=== PATIENT | female | born 1935 | race Caucasian/White ===

== ENCOUNTER 2017-05-10 03:25 | Inpatient (IN) ==
[2017-05-10] MEDS ORDERED: KETOROLAC 30 MG/1 ML VIAL IM STA (04:02)
[2017-05-10] MEDS ORDERED: KETOROLAC 30 MG/1 ML VIAL ONE (04:03)
[2017-05-10 06:08] LABS: Basophils # 0.1 10*3/uL (0.0-0.2); Basophils % 0.8 % (0.0-0.8); Eosinophils # 0.3 10*3/uL (0.0-0.87); Eosinophils % 2.2 % (0.00-10.9); Hematocrit 36.2 VOL% (35.7-47.0); Hemoglobin 12.5 GM/DL (12.0-16.0); Immature Granulocytes % 0.4 %; Immature Granulocytes Absolute 0.05 #; Lymphocytes # 3.6 10*3/uL (1.4-4.0); Lymphocytes % 29.9 % (21.3-54.2); Mean Corpuscular HGB Conc 34.5 GM/DL (32-36); Mean Corpuscular Hemoglobin 30 PG (27-34); Mean Platelet Volume 9.3 FL (9.6-12.0); Monocytes # 1.1 10*3/uL (0.11-0.8); NRBC # 0.02 10*3/uL; Neutrophils # 6.9 10*3/uL (1.4-7.4); Neutrophils % 57.7 % (38.7-73.9); Platelet Count 275 T/CUMM (130-400); Red Blood Count 4.16 MC/CUMM (3.8-5.5); Red Cell Distribution Width 13.8 % (9.3-17.3); White Blood Count 11.9 T/CUMM (4-12)
[2017-05-10 06:23] LABS: PT Patient Result 10.5 SECS; Partial Thromboplastin Time 27.2 SECS (0-40)
[2017-05-10 06:29] LABS: Albumin 3.2 G/DL (3.4-5.0); Bilirubin,Total 0.9 MG/DL (0.2-1.0); Calcium 8.9 MG/DL (8.5-10.1); Osmolality,Calculated 268.1 MOS/KG (273-304); Potassium 3.4 MMOL/L (3.5-5.1); Total Protein 5.7 G/DL (6.4-8.3)
[2017-05-10 06:31] LABS: Apearance,Urine CLEAR (Clear); Bacteria,Urine Occasional /HPF (Few); Bilirubin,Urine Negative (Negative); Blood, Urine Large mg/dL (Negative); Glucose,Urine (UA) Negative (Negative); Hyaline Casts,Urine 1 /LPF (0-3); Ketones,Urine Negative (Negative); Mucus,Urine Occasional /LPF (Occasional); Nitrite,Urine Negative (Negative); Protein,Urine Negative; RBC,Urine 4 /HPF (0-4); Squamous Epithelial Cell,Urine Occasional /HPF (0-10); Urine Color Yellow (Yellow); Urine Specific Gravity 1.005 (1.001-1.035); Urine Urobilinogen < 2.0 EU/DL (0.2-1.0); WBC,Urine 1 /HPF (0-6)
[2017-05-10] MEDS ORDERED: ONDANSETRON 4 MG/2 ML VIAL IV PRN (06:42)
[2017-05-10] MEDS ORDERED: MORPHINE 2 MG/1 ML SYRINGE IV PRN (06:42)
[2017-05-10] MEDS ORDERED: DIPHENOXYLATE/ATROPINE 2.5-0.025 MG TABLET PO PRN (09:40)
[2017-05-10] MEDS ORDERED: INFLUENZA VIRUS VACCINE 0.5 ML SYRINGE IM ONE (09:42)
[2017-05-10] MEDS ORDERED: oxyCODONE IR 5 MG TABLET PO PRN (12:41)
[2017-05-10] MEDS ORDERED: MAGNESIUM HYDROXIDE SUSP 30 ML UDCUP PO PRN (12:41)
[2017-05-10] MEDS ORDERED: BACITRACIN OINT 0.9 GM PACK TOP ONE (13:24)
[2017-05-10] MEDS ORDERED: SODIUM CHLORIDE 0.9% 250 ML IV ONE (13:42)
[2017-05-10] MEDS ORDERED: PROPOFOL 200 MG/20 ML VIAL IV ONE (13:42)
[2017-05-10] MEDS ORDERED: ACETAMINOPHEN 1,000 MG/100 ML VIAL IV ONE (13:42)
[2017-05-10] MEDS ORDERED: ONDANSETRON 4 MG/2 ML VIAL ONE (13:42)
[2017-05-10] MEDS ORDERED: KETAMINE 500 MG/10 ML VIAL ONE (13:42)
[2017-05-10] MEDS: LACTATED RINGERS 1,000 ML IV SCH (15:15)
[2017-05-10] MEDS: ACETAMINOPHEN 500 MG TABLET PO SCH ×3 (17:29→23:05)
[2017-05-10] MEDS: KETOROLAC 15 MG/1 ML VIAL IV SCH ×2 (17:30→19:43)
[2017-05-10] MEDS: ZALEPLON 5 MG CAPSULE PO SCH (20:52)
[2017-05-10] MEDS: DOCUSATE SODIUM 100 MG CAPSULE PO SCH (20:52)
[2017-05-10] MEDS: clonazePAM 0.5 MG TABLET PO SCH (20:53)
[2017-05-10] MEDS: PREGABALIN 75 MG CAPSULE PO SCH (20:53)
[2017-05-11] MEDS: KETOROLAC 15 MG/1 ML VIAL IV SCH ×2 (01:29→06:50)
[2017-05-11] MEDS: ACETAMINOPHEN 500 MG TABLET PO SCH ×2 (04:24→11:32)
[2017-05-11] MEDS: LACTATED RINGERS 1,000 ML IV SCH ×3 (04:24→19:57)
[2017-05-11 06:12] LABS: Basophils # 0.1 10*3/uL (0.0-0.2); Basophils % 0.7 % (0.0-0.8); Eosinophils # 0.2 10*3/uL (0.0-0.87); Eosinophils % 3.2 % (0.00-10.9); Hematocrit 33.7 VOL% (35.7-47.0); Hemoglobin 11.3 GM/DL (12.0-16.0); Immature Granulocytes % 0.1 %; Immature Granulocytes Absolute 0.01 #; Lymphocytes # 1.7 10*3/uL (1.4-4.0); Lymphocytes % 22.9 % (21.3-54.2); Mean Corpuscular HGB Conc 33.5 GM/DL (32-36); Mean Corpuscular Hemoglobin 30 PG (27-34); Mean Corpuscular Volume 88.2 FL (87-102); Mean Platelet Volume 9.3 FL (9.6-12.0); Monocytes # 0.7 10*3/uL (0.11-0.8); Monocytes % 9.1 % (1.7-12.7); Neutrophils # 4.8 10*3/uL (1.4-7.4); Platelet Count 242 T/CUMM (130-400); Red Blood Count 3.82 MC/CUMM (3.8-5.5); Red Cell Distribution Width 13.9 % (9.3-17.3); White Blood Count 7.6 T/CUMM (4-12)
[2017-05-11 06:37] LABS: Calcium 8.3 MG/DL (8.5-10.1); Osmolality,Calculated 284.8 MOS/KG (273-304)
[2017-05-11 06:40] LABS: Albumin 2.4 G/DL (3.4-5.0); Bilirubin,Total 0.7 MG/DL (0.2-1.0); Calcium 8.4 MG/DL (8.5-10.1); Osmolality,Calculated 284.8 MOS/KG (273-304); Total Protein 4.6 G/DL (6.4-8.3)
[2017-05-11] MEDS: FONDAPARINUX 2.5 MG/0.5 ML SYRINGE SUBCUT SCH (06:49)
[2017-05-11] MEDS: LEVOTHYROXINE 75 MCG TABLET PO SCH (06:49)
[2017-05-11] MEDS: CHOLECALCIFEROL 1,000 UNIT TABLET PO SCH (09:05)
[2017-05-11] MEDS: DOCUSATE SODIUM 100 MG CAPSULE PO SCH ×2 (09:06→20:10)
[2017-05-11] MEDS: CYPROHEPTADINE 4 MG TABLET PO SCH (09:06)
[2017-05-11] MEDS: clonazePAM 0.5 MG TABLET PO SCH ×2 (09:06→20:10)
[2017-05-11] MEDS: ASPIRIN EC 81 MG TABLET PO SCH (09:06)
[2017-05-11] MEDS: FAMOTIDINE 20 MG TABLET PO SCH (09:06)
[2017-05-11] MEDS: OMEGA 3 ACID ETHYL ESTERS 1 GM CAPSULE PO SCH (09:06)
[2017-05-11] MEDS: MULTIVITAMIN (CENTRUM) TABLET PO SCH (09:06)
[2017-05-11] MEDS: ZALEPLON 5 MG CAPSULE PO SCH (20:10)
[2017-05-11] MEDS: PREGABALIN 75 MG CAPSULE PO SCH (20:10)
[2017-05-11] MEDS: oxyCODONE IR 5 MG TABLET PO PRN (21:09)
[2017-05-12] MEDS: oxyCODONE IR 5 MG TABLET PO PRN ×2 (02:53→21:55)
[2017-05-12] MEDS: LACTATED RINGERS 1,000 ML IV SCH ×2 (05:02→17:42)
[2017-05-12 05:12] LABS: Basophils # 0.1 10*3/uL (0.0-0.2); Basophils % 0.7 % (0.0-0.8); Eosinophils # 0.3 10*3/uL (0.0-0.87); Eosinophils % 2.5 % (0.00-10.9); Hematocrit 32.4 VOL% (35.7-47.0); Hemoglobin 11.2 GM/DL (12.0-16.0); Immature Granulocytes % 0.4 %; Immature Granulocytes Absolute 0.04 #; Lymphocytes # 2.3 10*3/uL (1.4-4.0); Lymphocytes % 22.7 % (21.3-54.2); Mean Corpuscular HGB Conc 34.6 GM/DL (32-36); Mean Corpuscular Hemoglobin 30 PG (27-34); Mean Corpuscular Volume 87.1 FL (87-102); Monocytes # 0.7 10*3/uL (0.11-0.8); Monocytes % 7.1 % (1.7-12.7); Neutrophils # 6.6 10*3/uL (1.4-7.4); Neutrophils % 66.6 % (38.7-73.9); Platelet Count 252 T/CUMM (130-400); Red Blood Count 3.72 MC/CUMM (3.8-5.5); Red Cell Distribution Width 13.9 % (9.3-17.3)
[2017-05-12] MEDS: FONDAPARINUX 2.5 MG/0.5 ML SYRINGE SUBCUT SCH (05:54)
[2017-05-12] MEDS: LEVOTHYROXINE 75 MCG TABLET PO SCH (06:00)
[2017-05-12] MEDS: CYPROHEPTADINE 4 MG TABLET PO SCH (08:45)
[2017-05-12] MEDS: DOCUSATE SODIUM 100 MG CAPSULE PO SCH ×2 (08:45→20:05)
[2017-05-12] MEDS: OMEGA 3 ACID ETHYL ESTERS 1 GM CAPSULE PO SCH (08:45)
[2017-05-12] MEDS: ASPIRIN EC 81 MG TABLET PO SCH (08:45)
[2017-05-12] MEDS: clonazePAM 0.5 MG TABLET PO SCH ×2 (08:46→20:05)
[2017-05-12] MEDS: CHOLECALCIFEROL 1,000 UNIT TABLET PO SCH (08:46)
[2017-05-12] MEDS: MULTIVITAMIN (CENTRUM) TABLET PO SCH (08:46)
[2017-05-12] MEDS: FAMOTIDINE 20 MG TABLET PO SCH (08:46)
[2017-05-12] MEDS: ZALEPLON 5 MG CAPSULE PO SCH (20:04)
[2017-05-12] MEDS: PREGABALIN 75 MG CAPSULE PO SCH (20:05)
[2017-05-13] MEDS: oxyCODONE IR 5 MG TABLET PO PRN (01:00)
[2017-05-13] MEDS: LACTATED RINGERS 1,000 ML IV SCH (01:23)
[2017-05-13] MEDS: LEVOTHYROXINE 75 MCG TABLET PO SCH (06:10)
[2017-05-13] MEDS: FONDAPARINUX 2.5 MG/0.5 ML SYRINGE SUBCUT SCH (06:10)
[2017-05-13] MEDS: MULTIVITAMIN (CENTRUM) TABLET PO SCH (09:07)
[2017-05-13] MEDS: DOCUSATE SODIUM 100 MG CAPSULE PO SCH (09:07)
[2017-05-13] MEDS: ASPIRIN EC 81 MG TABLET PO SCH (09:07)
[2017-05-13] MEDS: OMEGA 3 ACID ETHYL ESTERS 1 GM CAPSULE PO SCH (09:08)
[2017-05-13] MEDS: FAMOTIDINE 20 MG TABLET PO SCH (09:08)
[2017-05-13] MEDS: clonazePAM 0.5 MG TABLET PO SCH (09:08)
[2017-05-13] MEDS: CYPROHEPTADINE 4 MG TABLET PO SCH (09:09)
[2017-05-13] MEDS: CHOLECALCIFEROL 1,000 UNIT TABLET PO SCH (09:09)
[2017-05-13 11:09] VITALS: BP 116/57
== END 2017-05-13 12:10 | disposition swing bed (61) | DRG 482 ==
LOC: EDUNIT# → EDBD → N.ED 03:25 → SUATTDRO 06:41 → N.EDINP 06:41 → N.3E 08:29
PROVIDERS: ADMIT Internal Medicine Cardiovascular Disease; ATTEND Internal Medicine

== ENCOUNTER 2019-01-15 10:08 | Observation (INO) ==
[2019-01-15] MEDS ORDERED: ONDANSETRON 4 MG/2 ML VIAL IV PRN (15:07)
[2019-01-15] MEDS ORDERED: ACETAMINOPHEN 325 MG TABLET PO PRN (15:10)
[2019-01-15] MEDS: SODIUM CHLORIDE 0.9% 1,000 ML IV SCH (15:54)
[2019-01-15 16:13] LABS: Risk Ratio 5.64; Thyroid Stimulating Hormone 0.573 uIU/ml (0.358-3.74)
[2019-01-15] MEDS: cefTRIAXone 1,000 MG in SYRINGE 1 EACH IV SCH (16:39)
[2019-01-16] MEDS: SODIUM CHLORIDE 0.9% 1,000 ML IV SCH ×2 (04:05→15:30)
[2019-01-16 05:11] LABS: Basophils # 0.1 10*3/uL (0.0-0.2); Basophils % 1.1 % (0.0-0.8); Eosinophils # 0.4 10*3/uL (0.0-0.87); Eosinophils % 5.9 % (0.00-10.9); Hematocrit 37.4 VOL% (35.7-47.0); Hemoglobin 11.8 GM/DL (12.0-16.0); Immature Granulocytes % 0.3 %; Immature Granulocytes Absolute 0.02 #; Lymphocytes # 3.1 10*3/uL (1.4-4.0); Lymphocytes % 41.2 % (21.3-54.2); Mean Corpuscular HGB Conc 31.6 GM/DL (32-36); Mean Corpuscular Volume 87.8 FL (87-102); Mean Platelet Volume 10.5 FL (9.6-12.0); Monocytes % 9.1 % (1.7-12.7); Neutrophils % 42.4 % (38.7-73.9); Platelet Count 290 T/CUMM (130-400); Red Blood Count 4.26 MC/CUMM (3.8-5.5); White Blood Count 7.5 T/CUMM (4-12)
[2019-01-16 05:18] LABS: Albumin 2.9 G/DL (3.4-5.0); Bilirubin,Total 0.7 MG/DL (0.2-1.0); Osmolality,Calculated 275.7 MOS/KG (273-304); Total Protein 5.5 G/DL (6.4-8.3)
[2019-01-16] MEDS: CHOLECALCIFEROL 1,000 UNIT TABLET PO SCH (08:33)
[2019-01-16] MEDS: MULTIVITAMIN (CENTRUM) TABLET PO SCH (08:33)
[2019-01-16] MEDS: OMEGA 3 ACID ETHYL ESTERS 1 GM CAPSULE PO SCH (08:33)
[2019-01-16] MEDS: CYPROHEPTADINE 4 MG TABLET PO SCH (08:33)
[2019-01-16] MEDS: ASPIRIN EC 81 MG TABLET PO SCH (08:34)
[2019-01-16] MEDS: cefTRIAXone 1,000 MG in SYRINGE 1 EACH IV SCH (08:34)
[2019-01-16] MEDS: POLYETHYLENE GLYCOL POWDER 17 GM PACK PO SCH (10:05)
[2019-01-16] MEDS: DOCUSATE SODIUM 100 MG CAPSULE PO SCH ×2 (10:05→21:09)
[2019-01-16 10:18] LABS: Apearance,Urine CLEAR (Clear); Bacteria,Urine Occasional /HPF (Few); Bilirubin,Urine Negative (Negative); Blood, Urine Small mg/dL (Negative); Glucose,Urine (UA) Negative (Negative); Ketones,Urine Negative (Negative); Nitrite,Urine Negative (Negative); Protein,Urine Negative; RBC,Urine 4 /HPF (0-4); Squamous Epithelial Cell,Urine Occasional /HPF (0-10); Urine Color Straw (Yellow); Urine Specific Gravity 1.009 (1.001-1.035); Urine Urobilinogen < 2.0 EU/DL (<2.0); WBC,Urine <1 /HPF (0-6)
[2019-01-16] MEDS: DULoxetine 20 MG CAPSULE PO SCH (11:51)
[2019-01-17] MEDS: SODIUM CHLORIDE 0.9% 1,000 ML IV SCH ×2 (02:47→04:57)
[2019-01-17] MEDS ORDERED: ALUMINUM/MAGNES/SIMETH MAX STR 30 ML UDCUP PO PRN (02:52)
[2019-01-17 05:39] LABS: Basophils % 0.5 % (0.0-0.8); Eosinophils # 0.6 10*3/uL (0.0-0.87); Eosinophils % 6.4 % (0.00-10.9); Hemoglobin 13.1 GM/DL (12.0-16.0); Immature Granulocytes % 0.3 %; Immature Granulocytes Absolute 0.03 #; Lymphocytes # 1.9 10*3/uL (1.4-4.0); Lymphocytes % 21.3 % (21.3-54.2); Mean Corpuscular HGB Conc 32.8 GM/DL (32-36); Mean Corpuscular Volume 85.8 FL (87-102); Mean Platelet Volume 10.1 FL (9.6-12.0); Monocytes % 7.9 % (1.7-12.7); Neutrophils % 63.6 % (38.7-73.9); Platelet Count 305 T/CUMM (130-400); Red Blood Count 4.66 MC/CUMM (3.8-5.5); White Blood Count 8.8 T/CUMM (4-12)
[2019-01-17 06:22] LABS: Albumin 3.3 G/DL (3.4-5.0); Bilirubin,Total 1.4 MG/DL (0.2-1.0); Calcium 9.3 MG/DL (8.5-10.1); Osmolality,Calculated 281.1 MOS/KG (273-304); Total Protein 6.2 G/DL (6.4-8.3)
[2019-01-17 07:52] VITALS: BP 158/79
[2019-01-17] MEDS: cefTRIAXone 1,000 MG in SYRINGE 1 EACH IV SCH (08:28)
[2019-01-17] MEDS: CHOLECALCIFEROL 1,000 UNIT TABLET PO SCH (08:29)
[2019-01-17] MEDS: MULTIVITAMIN (CENTRUM) TABLET PO SCH (08:29)
[2019-01-17] MEDS: ASPIRIN EC 81 MG TABLET PO SCH (08:29)
[2019-01-17] MEDS: POLYETHYLENE GLYCOL POWDER 17 GM PACK PO SCH (08:29)
[2019-01-17] MEDS: OMEGA 3 ACID ETHYL ESTERS 1 GM CAPSULE PO SCH (08:29)
[2019-01-17] MEDS: CYPROHEPTADINE 4 MG TABLET PO SCH (08:29)
[2019-01-17] MEDS: DULoxetine 20 MG CAPSULE PO SCH (08:29)
[2019-01-17] MEDS: DOCUSATE SODIUM 100 MG CAPSULE PO SCH (08:29)
== END 2019-01-17 10:08 | disposition home health service (06) ==
LOC: N.2E 14:10 → INTOOBSV 14:10
PROVIDERS: ADMIT Internal Medicine; ATTEND Internal Medicine

== ENCOUNTER 2020-02-20 23:33 | Inpatient (IN) ==
[2020-02-20] MEDS ORDERED: TISSUE ADHESIVE 1 EACH APPLICATOR TOP ONE (23:47)
[2020-02-21] MEDS ORDERED: DIPH/TET/ACEL PERT BOOSTER VACCINE 0.5 ML VIAL IM ONE (00:10)
[2020-02-21] MEDS ORDERED: ONDANSETRON 4 MG/2 ML VIAL IV STA ×2 (00:10→00:49)
[2020-02-21] MEDS ORDERED: SODIUM CHLORIDE 0.9% 500 ML IV STA (00:10)
[2020-02-21] MEDS ORDERED: HYDROmorphone 2 MG/1 ML VIAL IV ONE (00:49)
[2020-02-21 00:53] LABS: Basophils # 0.1 10*3/uL (0.0-0.2); Basophils % 0.7 % (0.0-0.8); Eosinophils # 0.3 10*3/uL (0.0-0.87); Eosinophils % 2.4 % (0.00-10.9); Hematocrit 37.7 VOL% (35.7-47.0); Hemoglobin 12.9 GM/DL (12.0-16.0); Immature Granulocytes % 0.3 %; Immature Granulocytes Absolute 0.04 #; Lymphocytes # 2.7 10*3/uL (1.4-4.0); Lymphocytes % 21.3 % (21.3-54.2); Mean Corpuscular HGB Conc 34.2 GM/DL (32-36); Mean Corpuscular Volume 86.9 FL (87-102); Mean Platelet Volume 9.1 FL (9.6-12.0); Monocytes % 7.5 % (1.7-12.7); Neutrophils % 67.8 % (38.7-73.9); Platelet Count 291 T/CUMM (130-400); Red Blood Count 4.34 MC/CUMM (3.8-5.5); Red Cell Distribution Width 13.5 % (9.3-17.3); White Blood Count 12.5 T/CUMM (4-12)
[2020-02-21 01:03] LABS: PT Patient Result 10.7 SECS (9.8-11.9)
[2020-02-21 01:11] LABS: Alanine Aminotransferase 15 U/L (13-56); Albumin 3.5 G/DL (3.4-5.0); Alkaline Phosphatase 67 U/L (45-117); Aspartate Amino Transferase 17 U/L (0-37); Bilirubin,Total < 0.39 MG/DL (0.2-1.0); Blood Urea Nitrogen 18 MG/DL (7-18); Calcium 9.4 MG/DL (8.5-10.1); Estimated Glom Filtration Rate 52 ML/MIN; Glucose 95 MG/DL (74-106); Osmolality,Calculated 261.8 MOS/KG (273-304); Total Protein 6.8 G/DL (6.4-8.3); Troponin I < 0.015 NG/ML (0.00-0.045)
[2020-02-21 02:01] LABS: Sedimentation Rate-Westergren 31 MM/HR (0-30)
[2020-02-21] MEDS ORDERED: DEXTROSE 50% 25 GM/50 ML VIAL IV PRN (02:03)
[2020-02-21] MEDS ORDERED: ONDANSETRON 4 MG/2 ML VIAL IV PRN (02:03)
[2020-02-21] MEDS ORDERED: ACETAMINOPHEN 325 MG TABLET PO PRN (02:03)
[2020-02-21] MEDS ORDERED: GLUCAGON 1 MG VIAL IM PRN (02:03)
[2020-02-21 02:08] LABS: Apearance,Urine CLEAR (Clear); Bilirubin,Urine Negative (Negative); Blood, Urine Moderate mg/dL (Negative); Glucose,Urine (UA) Negative (Negative); Ketones,Urine Negative (Negative); Nitrite,Urine Negative (Negative); Protein,Urine Negative; RBC,Urine 2 /HPF (0-4); Squamous Epithelial Cell,Urine Occasional /HPF (0-10); Urine Color Straw (Yellow); Urine Specific Gravity 1.004 (1.001-1.035); Urine Urobilinogen < 2.0 EU/DL (0.2-1.0); WBC,Urine 1 /HPF (0-6)
[2020-02-21 02:16] LABS: Barbiturates Screen,Urine Negative (Negative); Benzodiazepines Screen,Urine Negative (Negative); Cannabinoid Screen,Urine Negative (Negative); Opiate Screen,Urine Positive (Negative); Phencyclidine Screen,Urine Negative (Negative)
[2020-02-21] MEDS ORDERED: ENOXAPARIN 40 MG/0.4 ML SYRINGE SUBCUT SCH ×2 (02:30→09:00)
[2020-02-21] MEDS: SODIUM CHLORIDE 0.9% 1,000 ML IV SCH ×2 (06:00→19:13)
[2020-02-21 07:26] LABS: Basophils # 0.1 10*3/uL (0.0-0.2); Basophils % 0.8 % (0.0-0.8); Eosinophils # 0.3 10*3/uL (0.0-0.87); Eosinophils % 3.3 % (0.00-10.9); Hemoglobin 11.4 GM/DL (12.0-16.0); Immature Granulocytes % 0.2 %; Immature Granulocytes Absolute 0.02 #; Lymphocytes % 29.3 % (21.3-54.2); Mean Corpuscular HGB Conc 32.6 GM/DL (32-36); Mean Corpuscular Volume 88.6 FL (87-102); Mean Platelet Volume 9.8 FL (9.6-12.0); Monocytes % 9.5 % (1.7-12.7); Neutrophils % 56.9 % (38.7-73.9); Platelet Count 227 T/CUMM (130-400); Red Blood Count 3.95 MC/CUMM (3.8-5.5); Red Cell Distribution Width 13.5 % (9.3-17.3); White Blood Count 10.4 T/CUMM (4-12)
[2020-02-21 07:44] LABS: Hypochromasia 1+; Microcytosis Slight
[2020-02-21] MEDS ORDERED: SODIUM CHLORIDE 0.9% 500 ML IV ONE ×2 (09:28→11:10)
[2020-02-21] MEDS: clonazePAM 0.5 MG TABLET PO SCH (20:25)
[2020-02-22] MEDS ORDERED: LEVOTHYROXINE 75 MCG TABLET PO SCH (06:30)
[2020-02-22 06:57] LABS: Basophils # 0.1 10*3/uL (0.0-0.2); Basophils % 1.2 % (0.0-0.8); Eosinophils # 0.4 10*3/uL (0.0-0.87); Eosinophils % 4.8 % (0.00-10.9); Hematocrit 32.3 VOL% (35.7-47.0); Hemoglobin 10.5 GM/DL (12.0-16.0); Immature Granulocytes % 0.3 %; Immature Granulocytes Absolute 0.02 #; Lymphocytes # 2.8 10*3/uL (1.4-4.0); Lymphocytes % 38.3 % (21.3-54.2); Mean Corpuscular HGB Conc 32.5 GM/DL (32-36); Mean Corpuscular Volume 90.2 FL (87-102); Mean Platelet Volume 9.6 FL (9.6-12.0); Monocytes % 8.8 % (1.7-12.7); Neutrophils % 46.6 % (38.7-73.9); Platelet Count 275 T/CUMM (130-400); Red Blood Count 3.58 MC/CUMM (3.8-5.5); Red Cell Distribution Width 13.6 % (9.3-17.3); White Blood Count 7.3 T/CUMM (4-12)
[2020-02-22 07:23] LABS: Calcium 8.8 MG/DL (8.5-10.1)
[2020-02-22] MEDS ORDERED: CITALOPRAM 20 MG TABLET PO SCH (09:00)
[2020-02-22] MEDS ORDERED: MULTIVITAMIN (CENTRUM) TABLET PO SCH (09:00)
[2020-02-22] MEDS: clonazePAM 0.5 MG TABLET PO SCH (09:02)
[2020-02-22] MEDS: SODIUM CHLORIDE 0.9% 1,000 ML IV SCH (09:10)
[2020-02-22 16:47] VITALS: BP 123/56
== END 2020-02-22 17:15 | disposition hospice, home (50) | DRG 563 ==
LOC: EDUNIT# → EDBD → N.ED 23:33 → N.EDINP 23:33 → N.TELES 02-21 03:02
PROVIDERS: ADMIT Internal Medicine; ATTEND Internal Medicine